=== PATIENT | female | born 1975 | race Two or more races ===

== ENCOUNTER 2025-03-21 23:17 | Inpatient (IN) | payer MEDICARE, MEDICAID ==
[~2025-03-21] VITALS: Ht 149.9 cm; Wt 91.0 kg
[2025-03-22] MEDS ORDERED: PARO-141 PO (00:51)
[2025-03-22] MEDS ORDERED: METH-797 PO (00:51)
[2025-03-22] MEDS ORDERED: DIPH25CA83 PO (00:55)
--- NOTE | 2025-03-22 02:25 | Physician Documentation ---
History of Present Illness ~ Chief Complaint: Suicidal Ideation Stated Complaint: SI Time Seen by MD: 02:25 Source: patient Mode of Arrival: EMS HPI The patient tells me that she has been under lot of stress recently related to social issues and housing issues. She tells me that today she was having thoughts of killing herself. She tells me that she was thinking about overdosing on an entire bottle of Benadryl. Does report a history of past suicidality and psychiatric admissions. She denies any actual self-harm today including no ingestion or physical self- harm today. She denies any other acute medical concerns. Medication Reconciliation Allergies: Coded Allergies: Penicillins (Verified Allergy, Unknown, 03/21/25) ciprofloxacin (Verified Allergy, Unknown, 03/21/25) levofloxacin (Verified Allergy, Unknown, 03/21/25) Scheduled Methocarbamol (Methocarbamol), 0.5 TAB PO Q12H Paroxetine HCl (Paroxetine HCl), 20 MG PO DAILY Scheduled PRN Trazodone HCl (Trazodone HCl), 50 MG PO HS PRN for insomnia Discontinued Medications Diphenhydramine Hcl (Benadryl), 1 CAP PO HS, (Reported) Paroxetine HCl (Paxil), 1 TAB PO DAILY, (Reported) Past Medical History Past Medical History: Depression Review of Systems Constitutional: Denies: fever Psychiatric: Reports: depression, suicidal Physical Exam Vital Signs: Temperature: 98.9, Source: Oral, Heart Rate: 79, Respiratory Rate: 16, BP: 124/66, Pulse Oximetry: 99, Weight: 96.900 Oxygen Flow Rate: 0 Physical Exam General: This is a pleasant and well-appearing middle-aged female HEENT: Atraumatic, oropharynx is moist Heart: Regular rate and rhythm, normal-appearing peripheral perfusion Lungs: Normal phonation, normal work of breathing, normal oxygen saturation on room air Extremities: Warm and well-perfused, no traumatic findings Neuro: Alert and oriented, no focal deficits Psychiatric: the patient was a slightly flattened affect, endorses thoughts of self-harm with a specific plan, does not appear intoxicated, does not appear to be responding to internal stimuli Progress Results/Orders Results/Orders Orders - RENEE CARLSON MD General Nursing Order (03/22/25 ) Laboratory Tests Test 03/22/25 02:43 03/22/25 02:50 03/22/25 04:55 SARS-CoV-2 Antigen (Rapid) Negative White Blood Count 10.1 Red Blood Count 4.77 Hemoglobin 14.0 Hematocrit 41.1 Mean Corpuscular Volume 86.2 Mean Corpuscular Hemoglobin 29.4 Mean Corpuscular Hemoglobin Concent 34.1 Red Cell Distribution Width 14.1 Platelet Count 274 Mean Platelet Volume 9.1 Neutrophils (%) (Auto) 64.5 Lymphocytes (%) (Auto) 25.2 Monocytes (%) (Auto) 7.4 Eosinophils (%) (Auto) 2.2 Basophils (%) (Auto) 0.7 Neutrophils # (Auto) 6.5 Lymphocytes # (Auto) 2.5 Monocytes # (Auto) 0.8 Eosinophils # (Auto) 0.2 Basophils # (Auto) 0.1 CBC Comment Sodium Level 141 Potassium Level 4.2 Chloride Level 104 Carbon Dioxide Level 30.3 Anion Gap 7 L Blood Urea Nitrogen 10 Creatinine 0.61 Estimated GFR/1.73 m2 > 90 BUN/Creatinine Ratio 16.4 Glucose Level 115 H Calcium Level 9.0 Total Bilirubin 0.4 Aspartate Amino Transf (AST/SGOT) 31 Alanine Aminotransferase (ALT/SGPT) 48 Alkaline Phosphatase 107 Total Protein 7.1 Albumin 3.7 Globulin 3.4 Albumin/Globulin Ratio 1.1 Thyroid Stimulating Hormone (TSH) 4.07 Chemistry Comments Salicylates Level 1.8 L Ethyl Alcohol Level < 10 Urine Specimen Description Cln catch midstream Urine Color Yellow Urine Clarity Clear Urine pH 6.0 Urine Specific [place] 1.020 Urine Protein Negative Urine Glucose (UA) Negative Urine Ketones Negative Urine Occult Blood Negative Urine Nitrite Negative Urine Bilirubin Negative Urine Urobilinogen 0.2 Urine Leukocyte Esterase Negative Volume Urine Centrifuged 10 ml Urine Comment Urine Opiates Screen Negative Urine Methadone Screen Negative Urine Fentanyl Screen Negative Urine Barbiturates Screen Negative Urine Phencyclidine Screen Negative Urine Amphetamines Screen Negative Urine Benzodiazepines Screen Negative Urine Cocaine Screen Negative Urine Cannabinoids Screen Positive Drug Screen Comment Medical Decision Making Differential Dx:Considerations: Include: Anxiety, Depression, Substance abuse, Suicidal Assessment The patient presents with suicidal thoughts, statements and a specific plan. Here in the ED, she does not appear intoxicated, does not appear to have an acute medical or surgical emergency. We will proceed with medical screening labs and plan for mental health evaluation later today. The patient was signed out at morning shift change to the oncoming ER provider, pending medical clearance and mental health evaluation. I took over care of this patient from previous ED physician. Patient is now medically cleared for psychiatric evaluation. Departure Disposition: [facility] Impression: Primary Impression: Suicidal ideations Referrals: NO PRIMARY CARE PROVIDER (PCP) Prescriptions Trazodone HCl (Trazodone HCl) 50 Mg Tablet 50 MG PO HS PRN for insomnia for 30 Days, #30 TAB Prov: NANCI,IGNACIO CARDIAC REHAB NURSE 03/25/25 Paroxetine HCl (Paroxetine HCl) 20 Mg Tablet 20 MG PO DAILY for 30 Days, #30 TAB Prov: NANCI,IGNACIO CARDIAC REHAB NURSE 03/25/25 Methocarbamol (Methocarbamol) 500 Mg Tablet 0.5 TAB PO Q12H for 30 Days, #60 TAB 0 Refills Prov: NANCI,IGNACIO CARDIAC REHAB NURSE 03/25/25 Signature Scribe Signature: na Attestation: TIA Oreilly MD Mar 22, 2025 02:25 RENEE CARLSON MD Mar 22, 2025 10:03
[2025-03-22 03:14] LABS: ETHANOL < 10 MG/DL (<10)
[2025-03-22 04:41] LABS: BASOPHILS # (AUTO) 0.1 X10'3 (0-0.2); BASOPHILS % (AUTO) 0.7 % (0-1); EOSINOPHILS # (AUTO) 0.2 X10'3 (0-0.9); EOSINOPHILS % (AUTO) 2.2 % (0-6); HEMATOCRIT 41.1 % (35.0-45.0); LYMPHOCYTES # (AUTO) 2.5 X10'3 (1.1-4.8); LYMPHOCYTES % (AUTO) 25.2 % (21-51); MEAN CORPUSCULAR HEMOGLOBIN 29.4 PG (27.0-31.0); MEAN CORPUSCULAR HGB CONC 34.1 g/dL (33.0-36.5); MEAN CORPUSCULAR VOLUME 86.2 FL (78-98); MEAN PLATELET VOLUME 9.1 FL (7.4-10.4); MONOCYTES # (AUTO) 0.8 X10'3 (0-0.9); MONOCYTES % (AUTO) 7.4 % (2-12); NEUTROPHILS # (AUTO) 6.5 X10'3 (1.8-7.7); NEUTROPHILS % (AUTO) 64.5 % (42-75); PLATELET COUNT 274 X10'3 (140-440); RED BLOOD COUNT 4.77 X10'6 (4.20-5.60); RED CELL DISTRIBUTION WIDTH 14.1 % (11.5-14.5); WHITE BLOOD COUNT 10.1 X10'3 (4.5-11.0)
[2025-03-22 04:50] LABS: ALANINE AMINOTRANSFERASE 48 U/L (12-78); ALBUMIN 3.7 G/DL (3.4-5.0); ALBUMIN/GLOBULIN RATIO 1.1 (1.1-1.5); ALKALINE PHOSPHATASE 107 IU/L (46-116); ANION GAP 7 (8-16); ASPARTATE AMINO TRANSFERASE 31 U/L (10-37); BILIRUBIN,TOTAL 0.4 MG/DL (0.1-1.0); BLOOD UREA NITROGEN 10 MG/DL (7-18); BUN/CREATININE RATIO 16.4 (10.0-20.0); CHLORIDE 104 MMOL/L (99-107); CREATININE 0.61 MG/DL (0.40-0.90); GLUCOSE 115 MG/DL (70-104); POTASSIUM 4.2 MMOL/L (3.5-5.1); SODIUM 141 MMOL/L (135-145); TOTAL CARBON DIOXIDE 30.3 MMOL/L (24-32); TOTAL PROTEIN 7.1 G/DL (6.4-8.2); eCRCL 76 ML/MIN; eGFR > 90 ML/MIN
[2025-03-22 04:58] LABS: SALICYLATE 1.8 MG/DL (4.0-20.0); THYROID STIMULATING HORMONE 4.07 ulU/ml (0.34-4.50)
[2025-03-22 05:08] LABS: BILIRUBIN,URINE NEGATIVE (Neg); CLARITY,URINE CLEAR (Clear); COLOR,URINE YELLOW (Yellow); GLUCOSE, URINE NEGATIVE (Neg); KETONES,URINE NEGATIVE (Neg); LEUKOCYTE ESTERASE ,URINE NEGATIVE (Neg); NITRITES, URINE NEGATIVE (Neg); OCCULT BLOOD,URINE NEGATIVE (Neg); PROTEIN,URINE NEGATIVE (Neg); UROBILINOGEN,URINE 0.2 E.U/dL (0.2-1.0)
[2025-03-22 05:13] LABS: UA COLLECTION TYPE CLN CATCH MIDSTREAM
[2025-03-22 06:57] LABS: URINE AMPHETAMINE SCREEN NEGATIVE (Neg); URINE BARBITUATE SCREEN NEGATIVE (Neg); URINE BENZODIAZEPINES SCREEN NEGATIVE (Neg); URINE CANNABINOID SCREEN POSITIVE (Neg); URINE COCAINE SCREEN NEGATIVE (Neg); URINE METHADONE SCREEN NEGATIVE (Neg); URINE OPIATE SCREEN NEGATIVE (Neg); URINE PHENCYCLIDINE SCREEN NEGATIVE (Neg)
[2025-03-22 13:10] VITALS: BP 133/76; PULSE 74; RESP 20; TEMP 98.3; O2SAT 98
[2025-03-22] MEDS ORDERED: mag hydrox/Alum hydrox/simeth 30ml oral suspension PO PRN (15:00)
[2025-03-22] MEDS ORDERED: loperamide 2mg capsule PO PRN (15:00)
[2025-03-22] MEDS ORDERED: magnesium hydroxide 30ml (MOM) UD suspension PO PRN (15:00)
[2025-03-22 19:00] VITALS: RESP 16; O2SAT 99
[2025-03-22 20:00] VITALS: BP 123/71; PULSE 77; RESP 16; TEMP 97.8; O2SAT 99
[2025-03-22] MEDS: METHOCARBAMOL 500 MG PO SCH (20:10)
[2025-03-22] MEDS: diphenhydrAMINE 25mg capsule PO PRN (22:34)
[2025-03-23 07:25] VITALS: BP 115/64; PULSE 66; RESP 16; TEMP 97.2; O2SAT 99
[2025-03-23 08:11] LABS: ALANINE AMINOTRANSFERASE 48 U/L (12-78); ALBUMIN 3.7 G/DL (3.4-5.0); ALKALINE PHOSPHATASE 105 IU/L (46-116); ANION GAP 4 (8-16); ASPARTATE AMINO TRANSFERASE 33 U/L (10-37); BILIRUBIN,TOTAL 0.6 MG/DL (0.1-1.0); BLOOD UREA NITROGEN 9 MG/DL (7-18); BUN/CREATININE RATIO 15.8 (10.0-20.0); CALCIUM 8.9 MG/DL (8.5-10.1); CHLORIDE 101 MMOL/L (99-107); CREATININE 0.57 MG/DL (0.40-0.90); GLUCOSE 136 MG/DL (70-104); POTASSIUM 4.1 MMOL/L (3.5-5.1); SODIUM 136 MMOL/L (135-145); TOTAL CARBON DIOXIDE 30.9 MMOL/L (24-32); TOTAL PROTEIN 7.4 G/DL (6.4-8.2); eCRCL 81 ML/MIN; eGFR > 90 ML/MIN
[2025-03-23 08:12] LABS: BASOPHILS # (AUTO) 0.1 X10'3 (0-0.2); BASOPHILS % (AUTO) 0.7 % (0-1); EOSINOPHILS # (AUTO) 0.3 X10'3 (0-0.9); EOSINOPHILS % (AUTO) 2.5 % (0-6); HEMATOCRIT 41.9 % (35.0-45.0); HEMOGLOBIN 14.4 g/dl (12.0-16.0); LYMPHOCYTES # (AUTO) 2.4 X10'3 (1.1-4.8); LYMPHOCYTES % (AUTO) 23.4 % (21-51); MEAN CORPUSCULAR HEMOGLOBIN 29.7 PG (27.0-31.0); MEAN CORPUSCULAR HGB CONC 34.4 g/dL (33.0-36.5); MEAN CORPUSCULAR VOLUME 86.2 FL (78-98); MEAN PLATELET VOLUME 8.1 FL (7.4-10.4); MONOCYTES # (AUTO) 0.7 X10'3 (0-0.9); MONOCYTES % (AUTO) 6.3 % (2-12); NEUTROPHILS % (AUTO) 67.1 % (42-75); PLATELET COUNT 302 X10'3 (140-440); RED BLOOD COUNT 4.86 X10'6 (4.20-5.60); RED CELL DISTRIBUTION WIDTH 14.3 % (11.5-14.5); WHITE BLOOD COUNT 10.4 X10'3 (4.5-11.0)
[2025-03-23 08:21] LABS: THYROID STIMULATING HORMONE 2.66 ulU/ml (0.34-4.50)
[2025-03-23] MEDS: PARoxetine 20mg tablet PO SCH (08:52)
[2025-03-23] MEDS ORDERED: NICOTINE POLACRILEX 2 MG LOZENGE BC PRN (08:55)
[2025-03-23 09:00] VITALS: RESP 16; O2SAT 99
[2025-03-23] MEDS: nicotine 14mg patch - 24hr TD SCH (09:05)
--- NOTE | 2025-03-23 12:09 | HISTORY AND PHYSICAL ---
MH History & Physical - Blank History and Physical CHIEF COMPLIANT SUICIDAL IDEATION HISTORY OF PRESENT ILLNESS The patient tells me that she has been under a lot of stress recently related to social issues and housing issues. Tells me that is today she was having thoughts of killing herself. She tells me that she was thinking about overdosing on an entire bottle of Benadryl. CHART REVIEW Janny is a 50-year-old female placed on a 1799 by [facility] for danger to self after she presented to the ED reporting suicidal ideation and life stressors that include being asked to leave the residential homes last transitional home at [facility] following interpersonal conflicts with staff. Janny presents as calm, cooperative, reports awareness of self, surrounding, hospital location in the date and time. Janny reports experiencing suicidal thoughts following recent medication changes from Zoloft to Paxil for depression. Life stressors include homelessness and interpersonal conflicts in relationships. Janny reports she does not "want to be on a streets. ASSESSMENT The patient was interviewed in observation room. The patient was actively standing in hallway talking on telephone. The patient endorses "I am felling pretty good." The patient endorses it is a combination of things. The patient endorses she was on Zoloft and due to the side effects was switched to Paxil one day and she had read that there could be some complications and issues the three situational things happened and I was not feeling too good." The patient endorses that her current residence she has a mutual agreement that she needs to move somewhere else they were going to send a referral to [facility]." Patient endorses "I was feeling uncomfortable at the [facility] the kept telling on me for everything and I kept getting talk to like I was a child.' I did not got into a fight with my whom I am legally from and also my best friend who decided to get drunk and blame me." "It was a bad day." "I fell safe here where I can get stable." Denies SI. Denies HI. Denies AVH. The patient is stable no acute distress noted. The patient is depressed, passive suicidal ideation with a plan, and engaged during session. Will continue daily assessment and adjusting treatment as needed. Closely monitor behavior and response to medication during hospitalization. Discussed treatment plan with patient. ASE/risks and benefits of chosen treatment. She verbalized understanding and consented to treatment. REVIEW OF LABS WBC 10.1 RBC 4.77 HEMOGLOBIN 14 HEMATOCRIT 41.1 PLATELET COUNT 274 SODIUM 141 POTASSIUM 4.2 CHLORIDE 104 ANION GAP 7 BUN 10 CREATININE 0.61 GLUCOSE 115 CALCIUM 9.0 AST 31 ALT 48 ALBUMIN 3.7 TOX SCREEN POSITIVE CANNABIS TSH 4.07 COVID NEGATIVE URINALYSIS NEGATIVE MENTAL STATUS EXAM APPEARANCE: APPROPRIATE.OBESE AVERAGE HEIGHT FEMALE. BLACK SHOULDER LENGTH HAIR. WEARING STREET CLOTHING SPEECH: CIRCUMSTANTIAL EYE CONTACT: INTERMITTENT AFFECT: FLAT MOOD: DEPRESSED ORIENTATION IMPAIRMENT: NONE MEMORY IMPAIRMENT: NONE ATTENTION: FULL HALLUCINATIONS: NONE SUICIDALITY: IDEATION, PLAN, PASSIVE DELUSIONS: NONE BEHAVIOR: COOPERATIVE JUDGMENT: POOR INSIGHT: POOR TREATMENT PAXIL 20 MG P.O. DAILY Monitoring by Staff, Milieu, Group, and Individual counseling as needed -- According to the [place] Suicide Assessment the above named patient is on Q15 MINUTE CHECKS. [id number] patient does not have a good safety plan for discharge at this time. We are still titrating medications to an effective dose while maintaining a therapeutic environment to prevent decompensation and readmission. 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 DISCHARGE HOME ONCE STABLE. Past Psychiatric History Past Psychiatric History 8TH INPATIENT PS[facility]CHIATRIC MENTAL HEALTH HOSPITALIZATION Past Medical History Past Medical History SEE MEDICAL H AND P Past Surgical History Past Surgical History PARTIAL HYSTERECTOMY RIGHT LEG AND ANKLE SET CARPAL TUNNEL Past Family History Patient History: Borderline personality disorder MOTHER FH: bipolar disorder MOTHER FH: depression FATHER FH: diabetes mellitus MOTHER FH: schizophrenia CHILD FH: stroke MOTHER FHx: cancer of GI tract FATHER Substance Abuse History Substance Abuse History ALCOHOL-OCCASIONALLY MARIJUANA-DAILY TOBACCO-DAILY ILLICIT DRUGS-SOBER FOR 21 YEARS-METHAMPHETAMINES Personal History Current Living Situation [facility] Marital & Relationship History LEGALLY . ONE SON. 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 Social Activity BORN AND RAISED IN [facility] [employer] 4 [place] [employer] UP WITH BOTH MOM AND DAD IN THE HOME Caodaism [place] Legal History DENIES ANY LEGAL HISTORY History DENIES ANY HISTORY Developmental History Childhood PHYSICAL, EMOTIONAL, SEXUAL-PARENTS, BOYFRIEND'S, EX- Assessment/Plan Problems/Diagnosis: (1) Major depression, recurrent (2) Suicidal ideations CODING VISIT-PSYCHIATRY Date of Service: Mar 23, 2025 Billing Provider: IGNACIO CHRISTINE APRN Psych Common Visit Codes: [id number] INP/OBS CARE (High) IGNACIO CHRISTINE APRN Mar 23, 2025 12:09
[2025-03-23] MEDS: ibuprofen 200mg tablet PO ONE (14:47)
[2025-03-23] MEDS: acetaminophen 325mg tablet PO PRN (17:41)
[2025-03-23 19:00] VITALS: RESP 18; O2SAT 97
--- NOTE | 2025-03-23 19:27 | HISTORY AND PHYSICAL-Residence ---
History & Physical Providers to Resident Creating Document: JUAN LUDWIG ART ~ History of Present Illness Reason for Admit\Complaint: Suicide idea History of Present Illness A 50 years old undomiciled female with a past medical history of fibromyalgia, mixed connective tissue disorder, IBS, chronic generalized pain syndrome on chronic Alleve taking, treatment resistant H pylori, fatty liver infiltration, class three obesity BMI 40.5, s/p left-sided partial hysterectomy and oophorectomy and fallopian tube removal surgery, bilateral carpal tunnel syndrome, right leg and ankle set, substance abuse hx with marijuana, tobacco, occasional alcohol, history of methamphetamine, severe major depressive disorder with suicide idea, borderline personality disorder, PTSD who was admitted to the [facility] unit for the suicidal ideation from severe major depressive disorder trying to attempt with the idea of taking OD Benadryl but she only achieved to take two tablets and slept well. She stated that her depression got worse on transition on Zoloft to Paxil. She denied any bleeding manifestations except for the occasional nausea and stomach upset from the recurrent H pylori infections. Allergies: Coded Allergies: Penicillins (Verified Allergy, Unknown, 03/21/25) ciprofloxacin (Verified Allergy, Unknown, 03/21/25) levofloxacin (Verified Allergy, Unknown, 03/21/25) Home Medications Home Medications Active Reported Benadryl (Diphenhydramine Hcl) 25 Mg Capsule 1 Cap PO HS 30 Days Paxil (Paroxetine HCl) 20 Mg Tablet 1 Tab PO DAILY 30 Days Methocarbamol 500 Mg Tablet 0.5 Tab PO Q12H 30 Days Past Medical History Past Medical History As in HPI Past Surgical History Surgical History Comment As in HPI Family History Family History: Borderline personality disorder MOTHER FH: bipolar disorder MOTHER FH: depression FATHER FH: diabetes mellitus MOTHER FH: schizophrenia CHILD FH: stroke MOTHER FHx: cancer of GI tract FATHER Past Social History Social History Comment See psychiatric note ROS ROS Hours were review, WNL except for the above-mentioned in HPI. Constitutional: Denies: fever Psychiatric: Reports: depression, suicidal Exam Vitals: Vital Signs Date Time Temp Pulse Resp B/P (MAP) Pulse Ox O2 Delivery O2 Flow Rate FiO2 03/23/25 09:00 16 99 Room Air 0.0 03/23/25 07:25 97.2 66 115/64 (81) General: General: Well alert, well oriented, not confused, not agitated, not in acute distress, well cooperated during the physical. HEENT: HEENT: Conjunctive are pink, sclerae clear, no icterus, pupil is equal in both sides, reactive to light, no ear discharge, no pharyngeal erythema or an edema, mouth and lips are moist. Neck: Neck: Supple, no JVD, no lymphadenopathy and thyromegaly. 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: No focal neurological deficits, no motor and sensory weakness in all 4 extremities, could move all 4 extremities Musculoskeletal: Musculoskeletal: No joint swelling, deformities, inflammations, and no scoliosis and back tenderness Skin: Skin: No active skin lesions and rashes Diagnostic Data Last Recorded Lab Results: 03/23/25 0716 03/23/25 0716 Counseling Services Smoking & Tobacco Cessation: 3-10 Minutes Advance Care Planning Advanced Care plannin - 30 Minutes Additional Plan A 50 years old undomiciled female with a past medical history of fibromyalgia, mixed connective tissue disorder, class three obesity BMI 40.5, IBS, chronic generalized pain syndrome on chronic Alleve taking, treatment resistant H pylori, Fatty liver disease, s/p left-sided partial hysterectomy and oophorectomy and fallopian tube removal surgery, bilateral carpal tunnel syndrome, right leg and ankle set, substance abuse hx with marijuana, tobacco, occasional alcohol, history of methamphetamine, severe major depressive disorder with suicide idea, borderline personality disorder, PTSD who was admitted to the [facility] unit for the suicidal ideation from severe major depressive disorder trying to attempt with the idea of taking OD Benadryl but she only achieved to take two tablets and slept well. She stated that her depression got worse on transition on Zoloft to Paxil. She denied any bleeding manifestations except for the occasional nausea and stomach upset from the recurrent H pylori infections. # Suicidal idea # major depressive disorder # borderline personality disorder # PTSD # substance abuse history-tobacco, marijuana, alcohol, and history of methamphetamine use -proceed with the management of Psych team # Mild Hyperglycemia with HbA1C on 03/23/25-5.8 # class three obesity, BMI 40.5 # Fatty liver infiltration - monitor blood glucose and educated about the active lifestyle with heart healthy and carbs controlled diet with possible weight losing plan -TSH WNL -pending hepatitis panel, recommended for ultrasound abdomen survey in outpatient setting with the lipid profile surveillance for the necessary acting off anti-lipid medications # Fibromyalgia # Mixed Connective tissue disorder # Generalized chronic pains syndrome # IBS- permanent constipated side # Carpal tunnel syndrome -trying to control the pain with mental support, exercises, socializing, psychiatric medications, and Tylenol as needed -encourage high fiber diet, optimal water intake as per allowance, movement and stress coping methods -f/up w/ rheumatology in the outpatient setting # Hx of recurrent and treatment resistant H pylori infections -recommend to follow up with the PCP/GI in outpatient setting after discharge for the proper H pylori eradication with fecal oral hygiene education -control nausea with zofran as needed but awareness for QT prolongation and VT/ VFib on the psych meds and recommended annelise kaylie, and other soothing remedies -recom slow and small and frequent meal -Maalox or semithicone for stomach upset CODE STATUS: Full code DVT prophylaxis: Movements Analgesia/sedation: Tylenol as needed, not exceed 3G per day Lines/tubes: None GI prophylaxis: Maalox or semithicone for stomach upset Nutrition: Heart healthy diet recommendation Prognosis: Guarded in [facility] Disposition: Continue management as per psychiatric team, appreciate for letting us involved in the patient's care management, hospitalist team are welcome to medical consultation during hospitalization. Resident MD attestation: Patient was seen and examined with attending MD, Dr. Yvon LUDWIG MD Internal Medicine Resident, PGY2 [facility] Date of Service: Mar 23, 2025 Billing Provider: NAKUL FOFANA MD Common Visit Codes: [id number] INP/OBS CARE (HIGH) JUAN LUDWIG, ART Mar 23, 2025 19:27 NAKUL FOFANA MD Mar 23, 2025 21:27
[2025-03-23 20:00] VITALS: BP 129/77; PULSE 83; RESP 18; TEMP 98.7; O2SAT 97
[2025-03-24 07:11] LABS: HBSAG SCREEN Negative (Negative); HEP B CORE AB, IGM Negative (Negative); HEP B CORE AB, TOT Negative (Negative); HEP B SURF AB Reactive (.)
[2025-03-24 07:19] VITALS: BP 118/83; PULSE 70; RESP 16; TEMP 97.9; O2SAT 100
[2025-03-24 08:35] VITALS: RESP 16; O2SAT 100
[2025-03-24] MEDS: acetaminophen 325mg tablet PO PRN (08:39)
--- NOTE | 2025-03-24 12:39 | PROGRESS NOTE ---
Progress Note Dictate Providers to CC ~ Central Line/PICC still needed: N\\A Antibiotic Ordered?: No MRSA Education MRSA Education Provided to pt: No Objective Vitals Vital Signs Date Time Temp Pulse Resp B/P (MAP) Pulse Ox O2 Delivery O2 Flow Rate FiO2 03/24/25 08:35 16 100 Room Air 03/24/25 07:19 97.9 70 118/83 (95) 03/23/25 09:00 0.0 Lab Results: 03/23/25 0716 03/23/25 0716 Psychiatrist's Progress Note Date of Service: Mar 24, 2025 Notes CHART REVIEW Janny is a 50-year-old female placed on a 1799 by S [facility] for danger to self after she presented to the ED reporting suicidal ideation and life stressors that include being asked to leave the residential homes last transitional home at [facility] following interpersonal conflicts with staff. Janny presents as calm, cooperative, reports awareness of self, surrounding, hospital location in the date and time. Janny reports experiencing suicidal thoughts following recent medication changes from Zoloft to Paxil for depression. Life stressors include homelessness and interpersonal conflicts in relationships. Janny reports she does not "want to be on a streets. ASSESSMENT The patient was interviewed in observation room. The patient was actively sitting in rec room. The patient endorses "I am good." The patient endorses she had 2 interviews today from [facility] and [employer]. "I am happy about that." "I am feeling really good this is the 4th day of the Paxil and I am feeling really good." Denies SI. Denies SI. Denies HI. Denies AVH. The patient is stable no acute distress noted. The patient is less depressed, and engaged during session. Will continue daily assessment and adjusting treatment as needed. Closely monitor behavior and response to medication during hospitalization. Results Of any Diagn. Testing REVIEW OF LABS WBC 10.1 RBC 4.77 HEMOGLOBIN 14 HEMATOCRIT 41.1 PLATELET COUNT 274 SODIUM 141 POTASSIUM 4.2 CHLORIDE 104 ANION GAP 7 BUN 10 CREATININE 0.61 GLUCOSE 115 CALCIUM 9.0 AST 31 ALT 48 ALBUMIN 3.7 TOX SCREEN POSITIVE CANNABIS TSH 4.07 COVID NEGATIVE URINALYSIS NEGATIVE Appearnace: Other (APPROPRIATE.OBESE AVERAGE HEIGHT FEMALE. BLACK SHOULDER LENGTH HAIR. WEARING STREET CLOTHING ) Speech: Other (CIRCUMSTANTIAL) Eye Contact: Other (INTERMITTENT) Motor Activity: Normal Affect: Full Orientation Impairment: None Memory Impairment: None Attention: Normal Hallucinations: None Other: None Suicidality: None Homicidality: None Delusions: None Behavior: Cooperative Insight: Fair, Poor Judgment: Fair, Poor Treatment PAXIL 20 MG P.O. DAILY Monitoring by Staff, Milieu, Group, and Individual counseling as needed -- According to the [place] Suicide Assessment the above named patient is on Q15 MINUTE CHECKS. [id number] patient does not have a good safety plan for discharge at this time. We are still titrating medications to an effective dose while maintaining a therapeutic environment to prevent decompensation and readmission. 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 DISCHARGE HOME ONCE STABLE. CODING VISIT-PSYCHIATRY Date of Service: Mar 24, 2025 Billing Provider: IGNACIO CHRISTINE APRN Psych Common Visit Codes: [id number] INP/OBS CARE(Mod) IGNACIO CHRISTINE APRN Mar 24, 2025 12:39
[2025-03-24 19:00] VITALS: RESP 17; O2SAT 99
[2025-03-24 20:00] VITALS: PULSE 81; RESP 17; TEMP 98.7; O2SAT 99
[2025-03-24] MEDS ORDERED: traZODone 50mg tablet PO PRN (21:15)
[2025-03-24] MEDS: hydrOXYzine 25 MG tablet PO PRN (22:28)
[2025-03-25 07:30] VITALS: BP 134/91; PULSE 77; RESP 12; TEMP 97.2; O2SAT 99
--- NOTE | 2025-03-25 09:53 | PROGRESS NOTE ---
Progress Note Dictate Providers to CC ~ Central Line/PICC still needed: N\\A Antibiotic Ordered?: No MRSA Education MRSA Education Provided to pt: No Objective Vitals Vital Signs Date Time Temp Pulse Resp B/P (MAP) Pulse Ox O2 Delivery O2 Flow Rate FiO2 03/25/25 07:30 97.2 77 12 134/91 (105) 99 Room Air 03/23/25 09:00 0.0 Lab Results: 03/23/25 0716 03/23/25 0716 Problem\\Assessment\\Plan Problems/Diagnosis: (1) Major depression, recurrent (2) Suicidal ideations Psychiatrist's Progress Note Date of Service: Mar 25, 2025 Notes CHART REVIEW Janny is a 50-year-old female placed on a 1799 by [facility] for danger to self after she presented to the ED reporting suicidal ideation and life stressors that include being asked to leave the residential homes last transitional home at [facility] following interpersonal conflicts with staff. Janny presents as calm, cooperative, reports awareness of self, surrounding, hospital location in the date and time. Janny reports experiencing suicidal thoughts following recent medication changes from Zoloft to Paxil for depression. Life stressors include homelessness and interpersonal conflicts in relationships. Janny reports she does not "want to be on a streets. ASSESSMENT The patient was interviewed in observation room. The patient was actively resting in bed with eyes closed. The patient endorses "I am doing good" Denies SI. Denies SI. Denies HI. Denies AVH. Patient endorses adequate sleep and food intake. The patient is stable no acute distress noted. The patient is calm, cooperative, and engaged during session. Will continue daily assessment and adjusting treatment as needed. Closely monitor behavior and response to medication during hospitalization. Results Of any Diagn. Testing REVIEW OF LABS WBC 10.1 RBC 4.77 HEMOGLOBIN 14 HEMATOCRIT 41.1 PLATELET COUNT 274 SODIUM 141 POTASSIUM 4.2 CHLORIDE 104 ANION GAP 7 BUN 10 CREATININE 0.61 GLUCOSE 115 CALCIUM 9.0 AST 31 ALT 48 ALBUMIN 3.7 TOX SCREEN POSITIVE CANNABIS TSH 4.07 COVID NEGATIVE URINALYSIS NEGATIVE Appearnace: Other (APPROPRIATE.OBESE AVERAGE HEIGHT FEMALE. BLACK SHOULDER LENGTH HAIR. WEARING STREET CLOTHING ) Speech: Other (CIRCUMSTANTIAL) Eye Contact: Other (INTERMITTENT) Motor Activity: Normal Affect: Full Mood: Euthymic Orientation Impairment: None Memory Impairment: None Attention: Normal Hallucinations: None Other: None Suicidality: None Homicidality: None Delusions: None Behavior: Cooperative Insight: Fair Judgment: Fair Treatment PAXIL 20 MG P.O. DAILY Monitoring by Staff, Milieu, Group, and Individual counseling as needed -- According to the [place] [facility]icide Assessment the above named patient is on Q15 MINUTE CHECKS. VOLUNTARY REVIEW OF Clinical notes [X ] RN notes [X] PCT documentation [X] SW notes Labs [ X] Medications [X] Care trends/care activity [X] Vitals [X] DISCUSSION WITH gluing machine offbearer [X] Staff SW [X] Treatment Team [X] Discharge UNSURE AT THIS TIME. DISCHARGE HOME ONCE STABLE. CODING VISIT-PSYCHIATRY Date of Service: Mar 25, 2025 Billing Provider: IGNACIO CHRISTINE APRN Psych Common Visit Codes: [id number] INP/OBS CARE(Low) IGNACIO CHRISTINE APRN Mar 25, 2025 09:53
[2025-03-25] MEDS ORDERED: METH-797 PO (14:23)
[2025-03-25] MEDS ORDERED: PARO20TA6 PO (14:23)
[2025-03-25] MEDS ORDERED: TRAZ-251 PO (14:23)
--- NOTE | 2025-03-25 16:06 | RADIOLOGY REPORT ---
EXAM: XR Chest, 1 View CLINICAL INDICATION: R/O TB TECHNIQUE: Frontal view of the chest. COMPARISON: None FINDINGS: LUNGS AND PLEURAL SPACES: Unremarkable. No consolidation. No pneumothorax. HEART: Unremarkable. No cardiomegaly. MEDIASTINUM: Unremarkable. Normal mediastinal contour. BONES/JOINTS: Unremarkable. No acute fracture. OTHER FINDINGS: . None. IMPRESSION: No acute cardiopulmonary process. No evidence of active TB.
[2025-03-25 19:00] VITALS: RESP 14; O2SAT 96
[2025-03-25 20:00] VITALS: BP 135/77; PULSE 94; RESP 14; TEMP 97.1; O2SAT 92
--- NOTE | 2025-03-25 20:43 | PROGRESS NOTE ---
Daily Progress Note Providers to CC ~ Antibiotic Timeout Antibiotic Ordered?: No Subjective Was seen in her room she denies any new concerns. Able to ambulate looks comfortable Objective Vital Signs Date Time Temp Pulse Resp B/P (MAP) Pulse Ox O2 Delivery O2 Flow Rate FiO2 03/25/25 07:30 97.2 77 12 134/91 (105) 99 Room Air 03/23/25 09:00 0.0 Result Diagram: 03/23/25 0716 03/23/25 0716 General-patient not in any acute distress, alert awake oriented, not ill-appearing/age-appropriate/looks comfortable, obese HEENT-atraumatic normocephalic, neck supple without elevated JVD, no thyromegaly or carotid bruit. No lymphadenopathy bilaterally. Eyes-no icterus or pallor seen in eyes Chest-clear to auscultation bilaterally, breathing nonlabored no tachypnea, no wheezing, no crepitation, no crackles. Heart-S1-S2 normal, regular heart rate no murmur Abdomen bowel sounds positive on auscultation, soft nondistended nontender no guarding, no rigidity Skin no active skin rash Neurology-grossly intact, nonfocal alert awake oriented Extremity- no pedal edema able to move all 4 extremities Psychiatry - patient is not confused or agitated cooperated during physical examination Problem\Assessment\Plan A 50 years old undomiciled female with a past medical history of fibromyalgia, mixed connective tissue disorder, class three obesity BMI 40.5, IBS, chronic generalized pain syndrome on chronic Alleve taking, treatment resistant H pylori, Fatty liver disease, s/p left-sided partial hysterectomy and oophorectomy and fallopian tube removal surgery, bilateral carpal tunnel syndrome, right leg and ankle set, substance abuse hx with marijuana, tobacco, occasional alcohol, history of methamphetamine, severe major depressive disorder with suicide idea, borderline personality disorder, PTSD who was admitted to the [facility] unit for the suicidal ideation from severe major depressive disorder trying to attempt with the idea of taking OD Benadryl but she only achieved to take two tablets and slept well. She stated that her depression got worse on transition on Zoloft to Paxil. She denied any bleeding manifestations except for the occasional nausea and stomach upset from the recurrent H pylori infections. # Suicidal idea # major depressive disorder # borderline personality disorder # PTSD # substance abuse history-tobacco, marijuana, alcohol, and history of methamphetamine use management as per Psychiatry team # Mild Hyperglycemia with HbA1C on 03/23/25-5.8 # class three obesity, BMI 40.5 # Fatty liver infiltration - monitor blood glucose and educated about the active lifestyle with heart healthy and carbs controlled diet with possible weight losing plan -TSH WNL -unremarkable hepatitis panel, # Fibromyalgia # Mixed Connective tissue disorder # Generalized chronic pains syndrome # IBS- permanent constipated side # Carpal tunnel syndrome -trying to control the pain with mental support, exercises, socializing, psychiatric medications, and Tylenol as needed -encourage high fiber diet, optimal water intake as per allowance, movement and stress coping methods -f/up w/ rheumatology in the outpatient setting # Hx of recurrent and treatment resistant H pylori infections -recommend to follow up with the PCP/GI in outpatient setting after discharge for the proper H pylori eradication with fecal oral hygiene education -control nausea with zofran as needed -recom slow and small and frequent meal -Maalox or semithicone for stomach upset Patient's current condition is guarded we will continue to follow patient as needed or as per protocol Date of Service: Mar 25, 2025 Billing Provider: KAREL QUICK MD Common Visit Codes: [id number] INP/OBS CARE(LOW) KAREL QUICK MD Mar 25, 2025 20:43
[2025-03-26 07:30] VITALS: RESP 13; O2SAT 100
[2025-03-26 08:00] VITALS: BP 114/79; PULSE 77; RESP 13; TEMP 97.6; O2SAT 100
--- NOTE | 2025-03-26 13:33 | DISCHARGE SUMMARY ---
Discharge Summary Providers to CC ~ Discharge Summary Admission Diagnosis: MAJOR DEPRESSION DISORDER, RECURRENT. SUICIDAL IDEATION Hospital Course DATE OF ADMISSION: DATE OF DISCHARGE: Discharge Diagnosis\\Comment: MAJOR DEPRESSION DISORDER, RECURRENT. SUICIDAL IDEATION Operations\\Procedures: NONE Consultants: MEDICAL TEAM Complications: NONE Condition on DC: Stable 2 or more antipsychotic used: No 2/more antipsychotic addressed: No Does Patient smoke: No Smoking education given.: No New Medications: Paroxetine HCl (Paroxetine HCl) 20 Mg Tablet 20 MG PO DAILY for 30 Days, #30 TAB Trazodone HCl (Trazodone HCl) 50 Mg Tablet 50 MG PO HS PRN for insomnia for 30 Days, #30 TAB Continued Medications: Methocarbamol (Methocarbamol) 500 Mg Tablet 0.5 TAB PO Q12H for 30 Days, #60 TAB 0 Refills (This prescription has been renewed) Discontinued Medications: Diphenhydramine Hcl (Benadryl) 25 Mg Capsule 1 CAP PO HS for 30 Days, #30 CAP 0 Refills Paroxetine HCl (Paxil) 20 Mg Tablet 1 TAB PO DAILY for 30 Days, #30 TAB 0 Refills Discharge Summary: CHART REVIEW Janny is a 50-year-old female placed on a 1799 by [facility] for danger to self after she presented to the ED reporting suicidal ideation and life stressors that include being asked to leave the residential homes last transitional home at [facility] following interpersonal conflicts with staff. Janny presents as calm, cooperative, reports awareness of self, surrounding, hospital location in the date and time. Janny reports experiencing suicidal thoughts following recent medication changes from Zoloft to Paxil for depression. Life stressors include homelessness and interpersonal conflicts in relationships. Janny reports she does not "want to be on a streets. Patient actively seen and examined on day of discharge 03/26/2025, by myself, MARÍA ELENA Park. The patient is interviewed in observation room. The patient endorses "Good." Denies SI. Denies HI. Denies AVH. Janny was able to formulate a safety plan which includes going to the emergency room if symptoms return or worsen. Call [phone] or [phone] for immediate assistance if necessary. During his hospital stay, Janny receive multidisciplinary treatment he adhered to his medication regimen and has been pleasant and cooperative. She denies any suicidal ideation (SI), homicidal ideation (HI), auditory/visual hallucination (HI). Staff has reported no behavioral issues, and the patient has been sleeping well, adequate food intake, with no mood or behavioral changes no afua. The decision to discharge Janny was made in consensus with the treatment team, including the neonatal social worker, community service director, and set up and charger on duty. The patient was discharged with a 30 day supply of medication. MENTAL STATUS EXAM APPEARANCE: APPROPRIATELY. DRESSED IN STREET CLOTHING. SPEECH: CIRCUMSTANCE EYE CONTACT: NORMAL AFFECT: CONGRUENT WITH MOOD MOOD: "GOOD" ORIENTATION IMPAIRMENT: NONE MEMORY IMPAIRMENT: NONE ATTENTION: NORMAL HALLUCINATIONS: NONE SUICIDALITY: NONE HOMICIDALITY: NONE DELUSIONS: NONE BEHAVIOR: COOPERATIVE, PLEASANT JUDGMENT: FAIR INSIGHT: FAIR Continue Current Inpatient Psychotropic Regimen @ home Follow-Up with Psychiatric Provider Safety Plan Discussed DISCHARGE CONDITION: Her readiness for discharge is supported by his stable mental status, adherence to treatment, and proactive approach to managing his mental health. Denies SI. Denies HI. Denies A/V/H. The patient has been informed to continue follow-up care to ensure ongoing support and monitoring. Patient discharged to [facility]. *Problems/Diagnosis: (1) Major depression, recurrent (2) Suicidal ideations Status: Acute Total Time Spent on D/C: > 30 Minutes Counseling Services Smoking & Tobacco Cessation: > 10 Minutes CODING VISIT-PSYCHIATRY Date of Service: March 26, 2025 Billing Provider: SAMIR GREEN MD Psych Common Visit Codes: [id number] DISCH DAY >30min IGNACIO CHRISTINE APRN March 26, 2025 08:19
== END 2025-03-26 13:20 | DRG 885 ==
LOC: ER 23:18 → ADULT MH 03-22 11:50 → UNDOADMIN 03-22 11:50 → ADULT MH 03-22 13:10
PROVIDERS: ADMIT Psychiatry & Neurology Psychiatry; ATTEND Psychiatry & Neurology Psychiatry
PROC: GZHZZZZ Group Psychotherapy (ICD-10-PCS; principal; 2025-03-23)
PROC: GZ51ZZZ Individual Psychotherapy, Behavioral (ICD-10-PCS; 2025-03-23)
DX: F33.9 Major depressive disorder, recurrent, unspecified (principal); Z68.41 Body mass index [BMI] 40.0-44.9, adult; R45.851 Suicidal ideations; F43.10 Post-traumatic stress disorder, unspecified; F60.3 Borderline personality disorder; Z20.822 Contact with and (suspected) exposure to COVID-19; Z88.1 Allergy status to other antibiotic agents; K76.0 Fatty (change of) liver, not elsewhere classified; K58.1 Irritable bowel syndrome with constipation; G56.00 Carpal tunnel syndrome, unspecified upper limb; G89.4 Chronic pain syndrome; M79.7 Fibromyalgia; R73.9 Hyperglycemia, unspecified; F15.10 Other stimulant abuse, uncomplicated; F12.10 Cannabis abuse, uncomplicated; F10.11 Alcohol abuse, in remission; E66.813 Obesity, class 3; Z88.0 Allergy status to penicillin; Z88.8 Allergy status to other drugs, medicaments and biological substances; Z79.899 Other long term (current) drug therapy; Z82.3 Family history of stroke; Z83.3 Family history of diabetes mellitus; Z90.711 Acquired absence of uterus with remaining cervical stump; Z81.8 Family history of other mental and behavioral disorders
CPT/HCPCS: 36415; 71045; 80053; 80305; 80320; 80329; 81003; 83036; 84443; 85025; 86704; 86705; 86706; 87081; 87340; 87811; 99285; A6250; Q0163; Q0177

== ENCOUNTER 2025-06-09 08:46 | Outpatient (CLI) | payer MEDICARE, MEDICAID ==
[~2025-06-09 08:46] MED LIST: METH-797 PO; PARO20TA6 PO; TRAZ-251 PO
--- NOTE | 2025-06-09 09:50 | RADIOLOGY REPORT ---
CLINICAL INDICATION: pain TECHNIQUE: 3 radiographic views of the left foot were obtained. Comparison: None FINDINGS/IMPRESSION: There is no evidence of acute fracture or dislocation. Small plantar calcaneal enthesophyte. The visualized joint space is well maintained. The alignment is anatomical. There is no radiopaque foreign body.
== END 2025-06-09 23:59 | disposition home or self-care (01) ==
LOC: RAD 08:46
PROVIDERS: ATTEND Podiatrist
DX: M77.32 Calcaneal spur, left foot (principal); M79.89 Other specified soft tissue disorders
CPT/HCPCS: 73630

== ENCOUNTER 2025-06-23 11:03 | Outpatient (CLI) | payer MEDICARE, MEDICAID ==
--- NOTE | 2025-06-23 12:08 | RADIOLOGY REPORT ---
INDICATION: LUMBAR PAIN COMPARISON: None TECHNIQUE: 3 views of the lumbar spine were obtained. FINDINGS: The lumbar vertebral alignment is normal. The intervertebral disc spaces are well-maintained. No significant facet arthropathy is noted. No acute fracture, vertebral compression deformity or aggressive osseous lesions. The paravertebral soft tissues are grossly unremarkable. IMPRESSION: No acute fracture or subluxation.
== END 2025-06-23 23:59 | disposition home or self-care (01) ==
LOC: RAD 11:03
PROVIDERS: ATTEND Family Medicine
DX: M51.360 Other intervertebral disc degeneration, lumbar region with discogenic back pain only (principal)
CPT/HCPCS: 72100

== ENCOUNTER 2025-06-23 11:12 | Outpatient (CLI) | payer MEDICARE, MEDICAID ==
--- NOTE | 2025-06-23 12:06 | RADIOLOGY REPORT ---
EXAM: DI ANKLE, COMPLETE(3VW MIN) CLINICAL INDICATION: RIGHT ANKLE PAIN TECHNIQUE: DI ANKLE, COMPLETE(3VW MIN) Comparison: None FINDINGS/IMPRESSION: There is no evidence of acute fracture or dislocation. ORIF tibia and fibula. The alignment is anatomical. There is no radiopaque foreign body.
== END 2025-06-23 23:59 | disposition home or self-care (01) ==
LOC: RAD 11:12
PROVIDERS: ATTEND Podiatrist
DX: M25.571 Pain in right ankle and joints of right foot (principal)
CPT/HCPCS: 73610